=== PATIENT | male | born 1955 | race Caucasian/White ===

== ENCOUNTER 2021-10-03 13:16 | Emergency (ER) | payer MEDICARE, OTHER, SELFPAY ==
[2021-10-03] VITALS (23 sets, daily range): BP systolic 123–178; BP diastolic 75–96; PULSE 52–86; RESP 14–26; TEMP 36.1–36.6; O2SAT 93–98
--- NOTE | ~2021-10-03 | CT_ITS ---
EXAMINATION: CT chest abdomen pelvis w con DATE: 10/03/2021 13:54 INDICATION: Abnormal appearance of the mediastinum on claims account manager for carotid CT, concern for aortic dissec tion, history of esophageal cancer TECHNIQUE: Transaxial computed tomographic images of the chest, abdomen, and pelvis were obtained aft er the administration of 100 cc of Omnipaque 350 intravenous contrast. The dose-length product (DLP) was 1958.91 mGy-cm. Automated exposure control and iterative reconstruction technique were employed. COMPARISON: 10/11/2019 FINDINGS: CHEST CT: There are changes of esophagectomy and gastric pull-through accounting for the abnormal appearing Sco ut radiograph. A left internal jugular Port-A-Cath ends with its tip in the distal superior vena cava . A stable 3 mm nodule of the right upper lobe is consistent with old granulomatous disease. There is mild atelectasis of the lower lobes. No pleural effusion or pneumothorax is identified. There is a 1 .3 cm left supraclavicular lymph node. The heart size is normal. There is moderate thoracic spondylos is. ABDOMEN/PELVIS CT: The liver, spleen, pancreas, gallbladder, and adrenal glands are normal. The kidneys are unremarkable . No pathologically enlarged abdominal or pelvic lymph nodes are identified. There is no free intrape ritoneal gas or evidence of bowel obstruction. There is moderate lumbar spondylosis. IMPRESSION: 1. Changes of esophagectomy and gastric pull-through accounting for the abnormality on the claims account manager radi ograph. 2. Enlarged left supraclavicular lymph node concerning for metastatic disease. Reviewed, dictated and finalized at location A. STITCHER HAND IMPRESSION: 1. Changes of esophagectomy and gastric pull-through accounting for the abnorma lity on the claims account manager radiograph. 2. Enlarged left supraclavicular lymph node concerning for metastatic disease.
--- NOTE | ~2021-10-03 | CT_ITS ---
EXAMINATION: CTA BRAIN/CAROTID DATE: 10/03/2021 13:53 INDICATION: Confusion and slurred speech . Limb ataxia. TECHNIQUE: Computed tomographic angiography (CTA) of the head and neck was performed with 100 mL Omni paque-350 intravenous contrast. Multiplanar reconstructions and maximum intensity projection 3D-recon structions of the carotid arteries and of the intracranial arteries were created by the technologist on a separate workstation. Precontrast CT of the head was also obtained. Automated exposure control and iterative reconstruction technique were employed.The dose-length product was 1958.91 mGy-cm. COMPARISON: None. FINDINGS: Carotid arteries: There is minimal atherosclerotic plaque with 0% stenosis of the right carotid bulb relative to normal distal artery lumen diameter (NASCET criteria). There is no evident atherosclerotic plaque with 0% s tenosis of the left carotid bulb relative to normal distal artery lumen diameter. The left vertebral artery is dominant. Postoperative changes in the right hemithorax with a likely esophagectomy and gas tric pull-through. There is adjacent compressive atelectasis at the posterior medial aspect of the ri ght upper lobe and superior segment of the right lower lobe. Left internal jugular central venous cat heter with distal tip at the caudal superior vena cava. Calcified right hilar lymph nodes consistent with old granulomatous disease. Mild to moderate lower cervical spondylosis. Head: 2.1 x 1.8 x 1.5 similar mixed cystic and enhancing solid intra-axial mass in the left temporal lobe w ith surrounding vasogenic edema. No other masses or abnormally enhancing brain lesions identified. No acute intracranial hemorrhage, acute infarction or abnormal extra axial fluid collection. Ventricles are normal and symmetric. No mass/mass effect. Changes of bilateral intraocular lens replacement. Th e orbits and mastoid air cells are normal. Mucosal thickening in the left maxillary sinus with decrea sed volume of the sinus which could be either developmental or sequela of chronic sinusitis. Intracranial arteries There is no hemodynamically significant stenosis in the vertebral, basilar and internal carotid arter ies. Left vertebral artery is dominant. There are no aneurysms identified. Both A1 and P1 segments a re patent. Cerebral arterial arborization appears symmetric. IMPRESSION: 1. 2.1 x 1.8 x 1.5 cm mixed cystic and solid enhancing mass in the left temporal lobe with surroundin g vasogenic edema. This is concerning for malignancy either primary or metastatic. 2. 0% stenosis of the right and left carotid bulbs relative to normal distal artery lumen diameter (N ASCET criteria). 3. Unremarkable cerebral CT angiogram. Reviewed, dictated and finalized at location B. GATION ATTORNEY ASSOCIATE IMPRESSION: 1. 2.1 x 1.8 x 1.5 cm mixed cystic and solid enhancing mass in the left tempora l lobe with surrounding vasogenic edema. This is concerning for malignancy eith er primary or metastatic. 2. 0% stenosis of the right and left carotid bulbs relative to normal distal ar raven lumen diameter (NASCET criteria). 3. Unremarkable cerebral CT angiogram.
--- NOTE | 2021-10-03 13:20 | ECG_ITS ---
Measurements Intervals [place] Rate: 53 P: 57 OK: 165 QRS: 25 QRSD: 110 T: 18 QT: 417 QTc: 392 Interpretive Statements SINUS BRADYCARDIA POSSIBLE LEFT ATRIAL ENLARGEMENT BASELINE ARTIFACT- I, II, III, AVR, AVL, AVF BORDERLINE ECG Electronically Signed On 10-03-2021 16:33:55 NETTING INSPECTOR by Stephan Perez D.O.
--- NOTE | 2021-10-03 13:35 | ED.NEUROSD ---
HPI - Neuro Symptoms/Deficit General Chief Complaint: Suspected CVA Stated Complaint: slurred speech, confusion Time Seen by Provider: 10/03/21 13:33 Source: RN notes reviewed History of Present Illness HPI Narrative: Patient presents to emergency department from home for altered mental status. Per the symptoms began at approximately 1230 when the patient began to have slurred speech and confusion patient is not answering questions appropriately did not have any unilateral deficits there is no facial droop noted per the . Per the the patient does have a history of esophageal cancer and was followed by [facility] he is currently on no treatment. denies any recent illness patient denies any fevers or chills chest pain or shortness of breath patient is diaphoretic upon arrival Related Data Home Medications Medication Instructions Recorded Confirmed losartan 25 mg PO DAILY 10/12/19 10/19/19 omeprazole 20 mg PO DAILY 10/12/19 10/19/19 Allergies Allergy/AdvReac Type Severity Reaction Status Date / Time No Known Allergies Allergy Verified 10/12/19 14:56 Review of Systems Review of Systems: Gen.: Denies fevers or chills Eyes: Denies eye pain or visual change ENT: Denies congestion Respiratory: Denies shortness of breath CV: Denies chest pain GI: Denies abdominal pain nausea, emesis or diarrhea Musculoskeletal: Denies back pain or muscle pain Neuro: See HPI Skin: Denies rash Except as documented, all other systems reviewed and negative [facility] Past Medical History Medical History (Updated 10/04/21 @ 00:00 by Bala Cruz) GERD (gastroesophageal reflux disease) Hypertension Social History Social History (Updated 10/03/21 @ 14:04 by Chandan Bell DO) Smoking status: Never smoker Exam Narrative: APPEARANCE: No acute distress, nontoxic, resting in bed HEENT: Normocephalic, atraumatic, OMM, EYES: PERRL, EOMI RESPIRATORY: No respiratory distress, clear to auscultation bilaterally with no rhonchi wheezing or rales CARDIOVASCULAR: RRR s murmur ABDOMINAL: Soft, nontender, nondistended MUSCULOSKELETAL: Moves all extremities. No clubbing, cyanosis or edema. NEURO: A and O ?1, following commands, speech slurred, cranial nerves II through XII grossly intact,muscle strength 5 out of 5 bilateral upper and lower extremities SKIN:: Warm, dry. Normal Color PSYCHIATRIC: Normal affect/mood Course Course Emergency Course: Discussed with patient's updated on mass in brain and need for transfer all questions answered Discussed with Dr. Nuñez at [facility] for oncology who accepts patient in transfer agrees with plan for Decadron with 4 mg every 6 hours given as well as Keppra Discussed with patient's plan for transfer in agreement at this time. Patient's mental status has greatly improved patient is ANO x3 following all commands awaiting transfer Vital Signs Vital signs: Vital Signs Temperature 97 F L 10/03/21 13:27 Pulse Rate 56 L 10/03/21 13:27 Respiratory Rate 21 H 10/03/21 13:27 Blood Pressure 132/76 10/03/21 13:27 Pulse Oximetry 93 10/03/21 13:27 Temperature 97.8 F 10/03/21 22:20 Pulse Rate 72 10/03/21 22:20 Respiratory Rate 17 10/03/21 22:20 Blood Pressure 123/75 10/03/21 22:20 Pulse Oximetry 97 10/03/21 22:20 MDM - Neuro Symptoms/Deficit Lab Data Result diagrams: 10/03/21 13:53 10/03/21 13:53 Labs: Lab Results 10/03/21 10/03/21 10/03/21 Range/Units 13:23 13:38 13:53 WBC 4.6 (4.5-10.0) K/mm3 RBC 4.23 L (4.6-6.20) M/mm3 Hgb 12.8 L D (14.0-18.0) g/dL Hct 38.3 L (42.0-52.0) % MCV 90.5 (80-100) fl MCH 30.3 (26-34) pg MCHC 33.4 (32-36) g/dl RDW 13.9 (11.5-14.5) % Plt Count 159 (150-375) k/mm3 MPV 9.0 (7.4-10.4) fl Immature Gran % (Auto) 0.2 (0-0.5) % Neut % (Auto) 70.0 (45.5-73.1) % Lymph % (Auto) 20.3 (18.3-44.2) % [place] %
[2021-10-03 13:41] LABS: Estimated CRCL calculation 85 ml/min; Estimated Glomerular Filt Rate > 60
[2021-10-03 13:59] LABS: Basophils Percent Auto 0.7 % (0.2-1.2); Eosinophils Absolute Auto 0.1 K/mm3 (0-0.3); Hematocrit 38.3 % (42.0-52.0); Hemoglobin 12.8 g/dL (14.0-18.0); Immature Granulocyte Absolute 0.01 K/mm3 (0.00-0.031); Immature Granulocyte Percent A 0.2 % (0-0.5); Lymphocytes Absolute Auto 0.93 K/mm3 (0.9-3.2); Lymphocytes Percent Auto 20.3 % (18.3-44.2); Mean Corpuscular HGB Conc 33.4 g/dl (32-36); Mean Corpuscular Hemoglobin 30.3 pg (26-34); Mean Corpuscular Volume 90.5 fl (80-100); Monocytes Absolute Auto 0.3 K/mm3 (0.1-0.6); Monocytes Percent Auto 6.8 % (2.6-8.5); Neutrophils Absolute Auto 3.2 K/mm3 (1.3-6.7); Platelet Count Result 159 k/mm3 (150-375); Red Blood Count 4.23 M/mm3 (4.6-6.20); Red Cell Distribution Width 13.9 % (11.5-14.5); White Blood Count 4.6 K/mm3 (4.5-10.0)
[2021-10-03 14:01] LABS: Glucose Point of Care 117 mg/dl (65-105)
[2021-10-03 14:10] LABS: Alanine Aminotransferase 33 U/L (4-50); Albumin Level 4.3 g/dL (3.5-5.1); Alkaline Phosphatase 50 U/L (38-126); Anion Gap 5 mmol/L (8-16); Aspartate Amino Transferase 41 U/L (17-59); Bilirubin,Total 0.8 mg/dL (0.2-1.3); Blood Urea Nitrogen 16 mg/dL (9-20); Calcium 8.9 mg/dL (8.4-10.2); Carbon Dioxide 26 mmol/L (22-30); Chloride 103 mmol/L (98-107); Estimated CRCL calculation 85 ml/min; Estimated Glomerular Filt Rate > 60; Glucose 118 mg/dL (65-110); Potassium 3.9 mmol/L (3.4-5.0); Sodium 134 mmol/L (137-145)
--- NOTE | 2021-10-03 14:12 | PC.NURSE ---
Per EDP Ray, no UA needed at this time.
[2021-10-03 14:13] LABS: Prothrombin Time 12.9 Seconds (11.1-14.7)
[2021-10-03 14:14] LABS: Partial Thromboplastin Time 22.6 SECONDS (22.3-36.8)
[2021-10-03 14:21] LABS: Troponin I < 0.012 ng/mL (0.000-0.034)
[2021-10-03] MEDS: levETIRAcetam 1000MG/NACL100ML 1,000 MG/100 ML BAG 400 MG IVPB (14:41)
--- NOTE | 2021-10-03 15:42 | PC.NURSE ---
Spoke to [facility] transfer line. Awaiting bed placement, pending COVID swab result.
[2021-10-03 15:47] LABS: EDCOVIDSCREEN Negative (Negative)
--- NOTE | 2021-10-03 16:02 | PC.NURSE ---
Updated [facility] transfer center regarding negative COVID swab.
--- NOTE | 2021-10-03 17:47 | PC.NURSE ---
Patient and family updated that [facility] is at max capacity for today and won't have a bed until tomorrow. Per EDP Ray, okay to give patient something to eat and drink.
--- NOTE | 2021-10-03 18:15 | PC.NURSE ---
[facility] transfer line called back stating they will indeed have a bed tonight, however no rooms assignment right now due to bed is still dirty.
--- NOTE | 2021-10-03 18:34 | PC.NURSE ---
Transfer Line: [phone]
[2021-10-03 18:40] LABS: Add Urine Microscopic? NO; Appearance Urine Clear (Clear); Bilirubin Urine Negative (Negative); Blood Urine Negative (Negative); Color Urine Colorless (Yellow); Glucose Urine UA Negative (Negative); Ketones Urine Negative (Negative); Leukocyte Esterase Ur Negative LEU/UL (Negative); Nitrate Urine Negative (Negative); Protein Urine Negative (Negative); Urobilinogen Urine Negative mg/dL (<2.0)
--- NOTE | 2021-10-03 19:15 | PC.NURSE ---
Patient report received from ROBB Hope. Assumed care of patient at this time.
--- NOTE | 2021-10-03 19:51 | PC.NURSE ---
Kerri from [facility] access line calls with bed number of room [id number] and phone number to call report is [phone].
[2021-10-03] MEDS: DEXAMETHASONE SOD PHOS INJ 4 MG/ML VIAL IV PUSH (20:17)
== END 2021-10-03 22:29 | disposition short-term general hospital (02) ==
PROVIDERS: Emergency Provider Emergency Medicine; PCP Family Medicine
DX: G93.89 Other specified disorders of brain (principal); R41.82 Altered mental status, unspecified; Z23 Encounter for immunization; K21.9 Gastro-esophageal reflux disease without esophagitis; I10 Essential (primary) hypertension; Z85.01 Personal history of malignant neoplasm of esophagus; Z20.822 Contact with and (suspected) exposure to COVID-19; R00.1 Bradycardia, unspecified; R94.31 Abnormal electrocardiogram [ECG] [EKG]
CPT/HCPCS: 70496; 70498; 71260; 74177; 80053; 81003; 82948; 84484; 85025; 85610; 85730; 87426; 93005; 96374; 96375; 96376; 99285; C9803; J1100; J1953; Q9967